=== PATIENT | male | born 1990 | race Caucasian/White ===

== ENCOUNTER 2019-09-27 18:40 | Emergency (ER) | payer OTHER, SELFPAY ==
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
[2019-09-27] MEDS ORDERED: Ibuprofen 200 MG TAB ONE (20:35)
== END 2019-09-27 21:25 | disposition home or self-care (01) ==
LOC: ERS 18:40
DX: S62.317A Displaced fracture of base of fifth metacarpal bone, left hand, initial encounter for closed fracture (principal); J34.89 Other specified disorders of nose and nasal sinuses; J45.909 Unspecified asthma, uncomplicated; F17.210 Nicotine dependence, cigarettes, uncomplicated; Z71.6 Tobacco abuse counseling; V63.5XXA Driver of heavy transport vehicle injured in collision with car, pick-up truck or van in traffic accident, initial encounter
CPT/HCPCS: 99406